=== PATIENT | male | born 1970 | race Two or more races ===

== ENCOUNTER 2018-01-13 17:40 | Emergency (ER) | payer MEDICAID ==
[~2018-01-13] VITALS: Ht 160 cm; Wt 79.4 kg
[2018-01-13 19:51] LABS: Urine Bacteria NONE SEEN /hpf (None Seen); Urine Blood Negative /uL (Negative); Urine Mucus FEW (None Seen); Urine Specific Gravity 1.017 (1.001-1.035); Urine Sperm PRESENT /hpf (None Seen); Urine WBC 2 /hpf (0 - 3)
[2018-01-14 00:46] VITALS: BP 174/101
== END 2018-01-14 01:39 | disposition home or self-care (01) ==
LOC: ER 17:48
DX: N20.0 Calculus of kidney (principal); N40.1 Benign prostatic hyperplasia with lower urinary tract symptoms; R30.0 Dysuria; I10 Essential (primary) hypertension
CPT/HCPCS: 74176; 81001

== ENCOUNTER 2018-01-22 14:30 | Emergency (ER) | payer MEDICAID ==
[~2018-01-22] VITALS: Ht 157.5 cm; Wt 79.4 kg
[2018-01-22] MEDS ORDERED: SODIUM CHLORIDE 0.9% 1,000 ML IV ONE (15:19)
[2018-01-22 15:23] LABS: Urine Bacteria NONE SEEN /hpf (None Seen); Urine Blood Negative /uL (Negative); Urine Specific Gravity 1.003 (1.001-1.035); Urine WBC 1 /hpf (0 - 3)
[2018-01-22] MEDS ORDERED: METOCLOPRAMIDE HCL 5MG/ml INJ 2ml VIAL IV ONE (15:30)
[2018-01-22] MEDS ORDERED: KETOROLAC TROMETH 30 MG/ML 1ML VIAL IV ONE (15:30)
[2018-01-22] MEDS ORDERED: LABETALOL HCL 5 MG/ML ML 20ML VIAL IV ONE (15:30)
[2018-01-22] MEDS ORDERED: TAMSULOSIN HYDROCHLORIDE 0.4 MG CAP PO ONE (15:30)
[2018-01-22 16:07] LABS: Basophils # (auto) 0 uL; Basophils % (auto) 0.3 % (0.0-2.0); Eosinophils # (auto) 0.1 uL; Eosinophils % (auto) 1.2 % (0.0-7.0); Hematocrit 46.1 % (41.0-53.0); Hemoglobin 15.8 g/dL (13.5-17.5); Lymphocytes # (auto) 1.1 uL; Lymphocytes % (auto) 9.3 % (10.0-50.0); Mean Corpuscular Hgb Conc. 34.2 g/dL (32.0-36.0); Mean Corpuscular Volume 84.9 fL (80.0-100.0); Monocytes # (auto) 0.6 uL; Monocytes % (auto) 4.9 % (0.0-12.0); Neutrophils # (auto) 10.2 uL; Neutrophils % (auto) 84.3 % (37.0-80.0); Nucleated Red Blood Cells % 0.2 %; Platelet Count (auto) 315 10^3/uL (140-450); Red Blood Cells 5.43 10^6/uL (4.5-5.90); Red Cell Distribution Width 13.5 % (11.8-14.3); White Blood Cell 12.1 10^3/uL (4.4-10.8)
[2018-01-22 16:32] LABS: Albumin 4.1 g/dL (3.4-5.0); BUN/Creatinine Ratio 6.7; Bilirubin, Total 0.3 mg/dL (0.2-1.0); Magnesium 2.2 mg/dL (1.6-2.6); Potassium 3.6 mmol/L (3.5-5.1); Total Protein 8.4 g/dL (6.4-8.2)
[2018-01-22 16:53] VITALS: BP 171/97
== END 2018-01-22 17:53 | disposition home or self-care (01) ==
LOC: ER 14:30 → EDBD 14:30 → ER 17:53
DX: R10.30 Lower abdominal pain, unspecified (principal); N40.0 Benign prostatic hyperplasia without lower urinary tract symptoms; K40.20 Bilateral inguinal hernia, without obstruction or gangrene, not specified as recurrent; I10 Essential (primary) hypertension; F17.210 Nicotine dependence, cigarettes, uncomplicated; Z90.49 Acquired absence of other specified parts of digestive tract
CPT/HCPCS: 36415; 74176; 80053; 81001; 83735; 85025; 93005; 96361; 96374; 96375; J1885